=== PATIENT | male | born 1960 | race Caucasian/White ===

== ENCOUNTER 2017-12-29 08:00 | Outpatient (RCR) | payer BC ==
[~2017-12-29 08:00] MED LIST: NO CURRENT MEDICATIO; NO HOME MEDICATIONS
== END 2018-03-20 | disposition home or self-care (01) ==
LOC: WSOT
DX: M79.643 Pain in unspecified hand (principal)

== ENCOUNTER 2021-06-29 09:18 | Day surgery (SDC) | payer BC ==
[~2021-06-29] VITALS: Ht 185.4 cm; Wt 81.5 kg
[2021-06-29 09:54] VITALS: BP 110/79; PULSE 68; TEMP 97.2
[2021-06-29] MEDS ORDERED: PROSCAR 5MG5 MG PO (10:03)
[2021-06-29 11:10] VITALS: BP 108/74; PULSE 74; TEMP 97.8
--- NOTE | 2021-06-29 11:10 | NUR ---
1110- PATIENT BROUGHT BACK TO ENDO ROOM 3 VIA CART. AMBULATED TO CHAIR WITHOUT DIFFICULTY. PLACED ON MONITORS, VITAL SIGNS STABLE. DENIES PAIN OR NAUSEA. AT BEDSIDE TO DRIVE PATIENT HOME. POLLY AT BEDSIDE FOR REPORT. IV INFUSING. PATIENT REQUESTS MUFFIN AND COFFEE AT THIS TIME. WARM BLANKET PROVIDED, CALL [facility] WITHIN REACH. WILL MONITOR. 1125- VITAL SIGNS REMAIN STABLE. DR. ESCAMILLA AT BEDSIDE TO REVIEW RESULTS. WILL MONITOR. 1140- PATIENT STATES HE FEELS READY TO GO HOME AT THIS TIME. VITAL SIGNS STABLE. IV REMOVED, INTACT. DISCHARGE INSTRUCTIONS REVIWED WITH PATIENT AND FAMILY. PATIENT TO GET DRESSED AT THIS TIME. 1145- [facility] TO DRIVE PATIENT HOME. ALL BELONGINGS IN HAND.
[2021-06-29 11:25] VITALS: BP 125/98; PULSE 93
[2021-06-29 11:40] VITALS: BP 127/86; PULSE 80
== END 2021-06-29 11:45 | disposition home or self-care (01) ==
LOC: SDCO 09:18
DX: Z12.11 Encounter for screening for malignant neoplasm of colon (principal); K57.30 Diverticulosis of large intestine without perforation or abscess without bleeding; K64.0 First degree hemorrhoids; E78.5 Hyperlipidemia, unspecified
CPT/HCPCS: J2704; J7120